=== PATIENT | female | born 1940 | race Caucasian/White ===

== ENCOUNTER → 2016-10-14 | Outpatient (CLI) | payer MEDICARE | END | disposition home or self-care (01) | LOC: MRI 13:40 | DX: M54.16 Radiculopathy, lumbar region (principal); M47.896 Other spondylosis, lumbar region; M54.40 Lumbago with sciatica, unspecified side; M25.551 Pain in right hip; Z91.81 History of falling; Z96.641 Presence of right artificial hip joint ==